=== PATIENT | female | born 1960 | race Caucasian/White ===

== ENCOUNTER 2017-12-11 19:11 | Emergency (ER) | payer MEDICARE, MEDICAID, SELFPAY ==
[2017-12-11 19:13] VITALS: BP 148/98; PULSE 99; RESP 16; TEMP 37; O2SAT 100; BMI 48.8
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
--- NOTE | 2017-12-11 20:00 | ED.RN ---
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 ADVISED TO CALL [facility] IN AM.
== END 2017-12-11 20:00 | disposition left against medical advice (07) ==
LOC: ED 20:08
PROVIDERS: Emergency Provider Emergency Medicine; PCP Family Medicine
DX: F10.129 Alcohol abuse with intoxication, unspecified (principal)

== ENCOUNTER 2017-12-29 15:23 | Inpatient (IN) | payer MEDICARE, MEDICAID, SELFPAY ==
[2017-12-29] VITALS (7 sets, daily range): BP systolic 116–191; BP diastolic 72–114; PULSE 75–89; RESP 14–16; TEMP 36.4–36.8; O2SAT 95–98; BMI 22.3
--- NOTE | 2017-12-29 16:39 | ED.VISSUMM ---
- ER Visit Summary Date of Service: 12/29/17 Chief Complaint: Alcohol detox History of Present Illness: The patient is a 57 F presenting for evaluation due to requesting alcohol detox. Patient states that she is a daily drinker of at least 12 beers a day. She states she has been doing this consistently over the course of the last couple of months. Patient states she is seeking alcohol detox. She denies any other coingestants or other drug use. Last ingestion was about an hour ago where she states she drank about 5 beers. Patient states that she called [facility] and they did inform her that she could come on Sunday to be admitted. Patient denies any significant auditory or visual hallucinations. She does endorse some anxiety associated with this. She also endorses some tremors, and occasional nausea. She denies any tactile disturbances associated with this. She does have a history of withdrawal in the past. Patient has been through detox to other times most recently approximately a year ago at a different facility. Physical Examination: Vital signs are within normal limits except for blood pressure of 191/114, patient is afebrile. General: Patient is well-nourished well-developed and in no acute distress. Head: Normocephalic, atraumatic Eyes: Pupils equal round and reactive bilaterally, extra occular motion intact bialterally ENT: Moist mucous membranes Neck: Supple, no lymphadenopathy, no JVD, no meningismus CVS: Heart regular rate and rhythm, no murmurs, rubs or gallops, radial pulses 2+ bilaterally Resp: Respirations nondistressed, lung sounds clear bilaterally Abdomen: Soft, nontender, nondistended, no palpable masses, normal bowel sounds Back: Nontender Extremities: Nontender, atraumatic, active full range of motion, no peripheral edema, mild sweaty palms Skin: warm, no rashes, no petechia Neuro: Alert and oriented x 4, CN 2-12 intact, no lateralizing neurological defecits, intoxicate, fine tremor of the hands Psyc: Normal affect Test Results: CBC unremarkable, chemistry shows hyponatremia 123, liver panel unremarkable, ethanol 180, toxicology positive for benzos and opiates Emergency Department Course and Treatment: Patient presented for evaluation requesting alcohol detox. Patient's workup does show hyponatremia. Patient was placed on supplemental normal saline. Patient's CIWA score at 2030 was found to be 18 which means that she meets criteria. Patient will be admitted to the hospitalist. Disposition: Admission Impression: 1. Alcohol dependence with intoxication and withdrawal 2. Hyponatremia This note was generated with [employer] dictation software. It may contain incorrect words, spelling, and punctuation that were not noted in review of the chart prior to signing ED Disposition - Plan for ED Patient: Chief Complaint: ETOH Intox Referrals: Makayla Perez [Primary Care Provider] -
--- NOTE | 2017-12-29 16:42 | ED.DCSUM_ITS ---
- ER Visit Summary Date of Service: 12/29/17 Chief Complaint: Alcohol detox History of Present Illness: The patient is a 57 F presenting for evaluation due to requesting alcohol detox. Patient states that she is a daily drinker of at least 12 beers a day. She states she has been doing this consistently over the course of the last couple of months. Patient states she is seeking alcohol detox. She denies any other coingestants or other drug use. Last ingestion was about an hour ago where she states she drank about 5 beers. Patient states that she called [facility] and they did inform her that she could come on Sunday to be admitted. Patient denies any significant auditory or visual hallucinations. She does endorse some anxiety associated with this. She also endorses some tremors, and occasional nausea. She denies any tactile disturbances associated with this. She does have a history of withdrawal in the past. Patient has been through detox to other times most recently approximately a year ago at a different facility. Physical Examination: Vital signs are within normal limits except for blood pressure of 191/114, patient is afebrile. General: Patient is well-nourished well-developed and in no acute distress. Head: Normocephalic, atraumatic Eyes: Pupils equal round and reactive bilaterally, extra occular motion intact bialterally ENT: Moist mucous membranes Neck: Supple, no lymphadenopathy, no JVD, no meningismus CVS: Heart regular rate and rhythm, no murmurs, rubs or gallops, radial pulses 2 + bilaterally Resp: Respirations nondistressed, lung sounds clear bilaterally Abdomen: Soft, nontender, nondistended, no palpable masses, normal bowel sounds Back: Nontender Extremities: Nontender, atraumatic, active full range of motion, no peripheral edema, mild sweaty palms Skin: warm, no rashes, no petechia Neuro: Alert and oriented x 4, CN 2-12 intact, no lateralizing neurological defecits, intoxicate, fine tremor of the hands Psyc: Normal affect Test Results: CBC unremarkable, chemistry shows hyponatremia 123, liver panel unremarkable, ethanol 180, toxicology positive for benzos and opiates Emergency Department Course and Treatment: Patient presented for evaluation requesting alcohol detox. Patient's workup does show hyponatremia. Patient was placed on supplemental normal saline. Patient's CIWA score at 2030 was found to be 18 which means that she meets criteria. Patient will be admitted to the hospitalist. Disposition: Admission Impression: 1. Alcohol dependence with intoxication and withdrawal 2. Hyponatremia This note was generated with [employer] dictation software. It may contain incorrect words, spelling, and punctuation that were not noted in review of the chart prior to signing ED Disposition - Plan for ED Patient: Chief Complaint: ETOH Intox Referrals: Makayla Perez [Primary Care Provider] -
[2017-12-29 16:54] LABS: ALB/GLOB Ratio 1.1 RATIO (0.9-2.4); AST(SGOT) 29 U/L (15-37); Alanine Aminotransfer ALT/SGPT 30 U/L (13-56); Alkaline Phosphatase 77 U/L (45-117); Anion Gap 9 (5-15); BUN 8 mg/dL (7-18); BUN/Creat Ratio 22.5 RATIO (10-20); Calcium,Total 8.5 mg/dL (8.5-10.1); Chloride 87 mmol/L (98-107); Creatinine, Serum 0.36 mg/dL (0.55-1.02); EST Glomerular Filtration Rate 201 mL/min (>60); Est Glom Filt Rate - Afr Amer 243 mL/min (>60); Estimated Creatinine Clearance 144.34 ml/min; Globulin 3.5 g/dL (2.2-4.2); Glucose 80 mg/dL (74-106); Potassium 3.3 mmol/L (3.5-5.1); Protein, Total 7.5 g/dL (6.4-8.2); Sodium Level 123 mmol/L (136-145)
[2017-12-29 17:11] LABS: Vista UDS pH Range 7
[2017-12-29 17:12] LABS: Amphetamine Urine VISTA NEGATIVE (<1000 ng/mL); Barbiturate Urine VISTA NEGATIVE (< 200 ng/mL); Benzodiazepine Urine VISTA POSITIVE (< 200 ng/mL); Cocaine Urine VISTA NEGATIVE (< 300 ng/mL); Ecstacy Urine VISTA NEGATIVE (< 500 ng/mL); Methadone Urine VISTA NEGATIVE (< 300 ng/mL); PCP Urine VISTA NEGATIVE (< 25 ng/mL); THC Urine VISTA NEGATIVE (< 50 ng/mL)
[2017-12-29 17:28] LABS: Absolute Lymphocyte Count 3.04 X10^3/ul (0.83-4.51); Absolute Neutrophil Count 3.4 X10^3/uL (2.0-7.7); Basophil# 0.03 X10^3/uL; Basophil% 0.4 % (0-1); Eosinophil# 0.15 X10^3/uL; Eosinophils% 2.1 % (0-5); Hematocrit 35.1 % (37-47); Hemoglobin 12.7 g/dl (12.0-15.0); Lymphocyte # 3.04 X10^3/ul (4.0); Lymphocyte % 41.6 % (19-41); Mean Corp Hgb Conc 36.2 g/gl (32-36); Mean Corpuscular Volume 94.1 fL (81-99); Monocyte# 0.68 X10^3/uL; Monocyte% 9.3 % (0-10); Neutrophil % 46.5 % (47-70); Platelet Count 291 K/mm3 (150-450); RBC Distribution Width CV 12.4 % (11.6-14.6); RBC Distribution Width SD 41.6 fl (35.1-43.9); Red Blood Count 3.73 M/mm3 (4.2-5.4); White Blood Count 7.3 K/mm3 (4.4-11.0)
[2017-12-29 17:29] LABS: POSITIVE COUNT NO; POSITIVE DIFFERENTIAL NO; POSITIVE MORPHOLOGY NO
[2017-12-29] MEDS: 0.9% Normal Saline 1,000 ML 150 ML IV ×2 (21:04→23:23)
[2017-12-29] MEDS: Ondansetron 4 MG/2 ML Vial IV (21:06)
--- NOTE | 2017-12-29 22:03 | HP.PCM_ITS ---
Problem List (1) ETOH abuse Status: Acute (2) Alcohol withdrawal Status: Acute (3) Hyponatremia Status: Acute (4) Hypokalemia Status: Acute History of Present Illness Date of Admission: 12/29/17 Chief Complaint: EtOH withdrawal The patient is a 57 year old female w/ h/o HTN, depression and EtOH abuse admitted for EtOH intoxication and withdrawal. Her last drink was 3PM today. She went to the ED saying that she wants to be detox. She drinks day and night. She would consistently drink at least 12 beers / day for the past few weeks. She has been previously treated for EtOH detox but she relapsed. She has nausea today when not drinking. Nothing made it better or worse. Her nausea started several hours after not drinking. She has tremors. She has not other complaint. Past Medical History Allergies acetaminophen [From Tylenol-Codeine #3] Adverse Reaction (Verified 12/11/17 19: 16) Hives codeine [From Tylenol-Codeine #3] Adverse Reaction (Verified 12/11/17 19:16) Hives latex Adverse Reaction (Verified 12/11/17 19:16) Swelling Home Medications: Ambulatory Orders Medication Instructions Recorded Diazepam [Valium] 5 mg PO TID 12/29/17 Dicyclomine HCl 20 mg PO Q6H PRN 12/29/17 Duloxetine HCl 60 mg PO DAILY 12/29/17 Hydrochlorothiazide 25 mg PO DAILY 12/29/17 Lisinopril [Zestril] 40 mg PO DAILY 12/29/17 Metoprolol Tartrate [Lopressor 100 mg PO BID 12/29/17 (Beta Nadira)] Omeprazole 40 mg PO DAILY 12/29/17 Pregabalin [Lyrica] 200 mg PO BID 12/29/17 Sertraline HCl [Zoloft] 100 mg PO DAILY 12/29/17 Smoking Status: Current every day smoker Tobacco Use: Non-smoker Alcohol: Heavy Drugs: None Review of Systems Constitutional: Denies: Chills, Fever, Weight Change HEENT: Denies: Head Aches, Sinus Congestion, Sinus Drainage Cardiovascular: Denies: Chest Pain, Palpitations Respiratory: Denies: Cough, Shortness of breath at rest, Sputum production Gastrointestinal: Denies: Abdominal Pain, Nausea, Vomiting Genitourinary: Denies: Dysuria Musculoskeletal: Denies: Joint Pain, Joint Tenderness Skin: Denies: Rash, Wounds Neurological: Denies: Numbness, Tingling, Focal weakness Psychiatric: Denies: Anxiety, Depression, Homicidal Ideations, Suicidal Ideations Hematologic/ Lymphatic: Denies: Easy Bruising, Easy Bleeding VTE Information - Inpt Only VTE Present on Admission: No VTE Mechan Device Prophylaxis: SCD's VTE Pharm Prophylaxis ordered?: Yes Patient Problems: Active and Suspected Problems ETOH abuse (Acute) Alcohol withdrawal (Acute) Hyponatremia (Acute) Hypokalemia (Acute) - Physical Exam General: Alert, Oriented x3, Cooperative HEENT: Atraumatic, PERRLA, EOMI, Normocephalic Neck: Supple, No JVD, Negative Carotid Bruits Lungs: Clear to auscultation, Normal air movement Cardiovascular: Regular rate, No murmurs Abdomen: Bowel Sounds Present, Soft, Non Tender Extremities: No edema, Capillary Refill Less than 3 Seconds Skin: No rashes, No breakdown Musculoskeletal: No Tenderness to Palpation of Joints or Extremities Neurological: Cranial nerves II-XII grossly intact Psych/Mental Status: Normal Affect, Appropriate Vital Signs Temp Pulse Resp BP Pulse Ox 97.6 F L 89 16 116/94 H 96 12/29/17 21:15 12/29/17 21:17 12/29/17 21:17 12/29/17 21:17 12/29/17 21:17 Oxygen Delivery Method Room Air Weight: 57.2 kg Body Mass Index (BMI) 22.3 Laboratory Tests Past 24 Hrs 12/29/17 12/29/17 12/29/17 16:15 16:20 16:20 WBC RBC Hgb Hct MCV MCH MCHC RDW RDW Differential Plt Count MPV Immature Gran % (Auto) Neut % (Auto) Lymph % (Auto) [place] % (Auto) Eos % (Auto) Baso % (Auto) Absolute Neuts (auto) Absolute Lymphs (auto) Total Counted Sodium 123 L Potassium 3.3 L Chloride 87 L Carbon Dioxide 27.0 Anion Gap 9 BUN 8 Creatinine 0.36 L Estim Creat Clear Calc 144.34 Est GFR (MDRD) Af Amer 243 Est GFR (MDRD) Non-Af 201 BUN/Creatinine Ratio 22.5 H Glucose 80 Calcium 8.5 Total Bilirubin 0.30 AST 29 ALT 30 Alkaline Phosphatase 77 Total Protein 7.5 Albumin 4.0 Globulin 3.5 Albumin/Globulin Ratio 1.1 Urine Opiates Screen POSITIVE H Urine Methadone Screen NEGATIVE Ur Barbiturates Screen NEGATIVE Ur Phencyclidine Scrn NEGATIVE Ur Amphetamines Screen NEGATIVE U Methamphetamin-MDMA NEGATIVE U Benzodiazepines Scrn POSITIVE H Urine Cocaine Screen NEGATIVE U Cannabinoids Screen NEGATIVE Ur Drug Screen Comment Ethyl Alcohol 188.0 12/29/17 17:22 WBC 7.3 RBC 3.73 L Hgb 12.7 Hct 35.1 L MCV 94.1 MCH 34.0 H MCHC 36.2 H RDW 12.4 RDW Differential 41.6 Plt Count 291 MPV 8.0 Immature Gran % (Auto) 0.100 Neut % (Auto) 46.5 L Lymph % (Auto) 41.6 H [place] % (Auto) 9.3 Eos % (Auto) 2.1 Baso % (Auto) 0.4 Absolute Neuts (auto) 3.4 Absolute Lymphs (auto) 3.04 Total Counted Not Reportable Sodium Potassium Chloride Carbon Dioxide Anion Gap BUN Creatinine Estim Creat Clear Calc Est GFR (MDRD) Af Amer Est GFR (MDRD) Non-Af BUN/Creatinine Ratio Glucose Calcium Total Bilirubin AST ALT Alkaline Phosphatase Total Protein Albumin Globulin Albumin/Globulin Ratio Urine Opiates Screen Urine Methadone Screen Ur Barbiturates Screen Ur Phencyclidine Scrn Ur Amphetamines Screen U Methamphetamin-MDMA U Benzodiazepines Scrn Urine Cocaine Screen U Cannabinoids Screen Ur Drug Screen Comment Ethyl Alcohol Assessment/Plan Active and Suspected Problems ETOH abuse (Acute) Alcohol withdrawal (Acute) Hyponatremia (Acute) Hypokalemia (Acute) a 57 year old female w/ h/o HTN, depression and EtOH abuse admitted for EtOH intoxication and withdrawal. 1) EtOH intoxication and withdrawal: C/w CIWA. C/w vitamins. C/w hydration. Consulted [facility]. 2) Hyponatremia: Probably secondary to EtOH. Hydration. Serial labs. Will consider workup, ie urine osmo, serum osmol, urine Na, TSH, and cortisol if not improving. 3) Hypokalemia: Secondary to poor intake. Replaced potassium. Lab in AM. 4) Prophylaxis: SCD / heparin.
[2017-12-29] MEDS: Metoprolol Tartrate 100 MG Tablet PO (23:25)
[2017-12-29] MEDS: Pregabalin 50 MG Capsule 200 MG PO (23:32)
[2017-12-29] MEDS: cloNIDine HCl 0.1 MG Tablet PO (23:32)
[2017-12-29] MEDS: LORazepam 1 MG Tablet 2 MG PO (23:32)
[2017-12-30] VITALS (13 sets, daily range): BP systolic 122–164; BP diastolic 73–108; PULSE 64–92; RESP 16–18; TEMP 36.4–37.2; O2SAT 95–98
[2017-12-30] MEDS: LORazepam 1 MG Tablet 2 MG PO ×4 (05:29→22:26)
[2017-12-30] MEDS: cloNIDine HCl 0.1 MG Tablet PO ×5 (05:30→21:05)
[2017-12-30] MEDS: 0.9% Normal Saline 1,000 ML 150 ML IV (05:48)
[2017-12-30 06:38] LABS: Absolute Lymphocyte Count 2.35 X10^3/ul (0.83-4.51); Absolute Neutrophil Count 1.7 X10^3/uL (2.0-7.7); Basophil# 0.02 X10^3/uL; Basophil% 0.4 % (0-1); Eosinophil# 0.14 X10^3/uL; Hematocrit 35.1 % (37-47); Hemoglobin 11.9 g/dl (12.0-15.0); Lymphocyte # 2.35 X10^3/ul (4.0); Lymphocyte % 49.7 % (19-41); Mean Corp Hgb Conc 33.9 g/gl (32-36); Mean Corpuscular Hgb 33.1 pg (27.0-32.0); Mean Corpuscular Volume 97.5 fL (81-99); Mean Platelet Vol. 8.7 fl (6.2-12.0); Monocyte# 0.53 X10^3/uL; Monocyte% 11.2 % (0-10); Neutrophil # 1.68 X10^3/uL (2.7-7.7); Neutrophil % 35.5 % (47-70); Platelet Count 285 K/mm3 (150-450); RBC Distribution Width CV 13.2 % (11.6-14.6); RBC Distribution Width SD 47.4 fl (35.1-43.9); White Blood Count 4.7 K/mm3 (4.4-11.0)
[2017-12-30 06:48] LABS: POSITIVE COUNT NO; POSITIVE DIFFERENTIAL NO; POSITIVE MORPHOLOGY NO
[2017-12-30 07:08] LABS: ALB/GLOB Ratio 1.1 RATIO (0.9-2.4); AST(SGOT) 28 U/L (15-37); Alanine Aminotransfer ALT/SGPT 27 U/L (13-56); Albumin, Serum 3.1 g/dL (3.2-5.0); Alkaline Phosphatase 55 U/L (45-117); Anion Gap 8 (5-15); BUN 7 mg/dL (7-18); BUN/Creat Ratio 22.3 RATIO (10-20); Calcium,Total 8.2 mg/dL (8.5-10.1); Chloride 102 mmol/L (98-107); Creatinine, Serum 0.31 mg/dL (0.55-1.02); EST Glomerular Filtration Rate 231 mL/min (>60); Est Glom Filt Rate - Afr Amer 280 mL/min (>60); Estimated Creatinine Clearance 167.62 ml/min; Globulin 2.8 g/dL (2.2-4.2); Glucose 87 mg/dL (74-106); Magnesium 1.9 mg/dL (1.6-2.6); Potassium 4.2 mmol/L (3.5-5.1); Protein, Total 5.9 g/dL (6.4-8.2); Sodium Level 133 mmol/L (136-145)
--- NOTE | 2017-12-30 07:51 | PCM.PROGNOTE ---
Patient Problems: Active and Suspected Problems ETOH abuse (Acute) Alcohol withdrawal (Acute) Hyponatremia (Acute) Hypokalemia (Acute) Subjective: Chief complaint: Follow-up after admission for EtOH intoxication/withdrawal admitted for medical stabilization, found to have hyponatremia and hypokalemia. Patient seen and examined. No acute events overnight. She reported that her nausea is improving, she is this anxious and tremors. Denied abdominal pain, constipation or diarrhea. No chest pain or shortness of breath. Her vital signs are stable. - Physical Exam General: Alert, Oriented x3, Cooperative, No apparent distress HEENT: Atraumatic, PERRLA, EOMI Oral: Moist Mucosa, No Gingival or Mucosal Lesions/ Ulcerations Neck: Supple, No JVD, Negative Carotid Bruits, Trachea Midline, Thyroid Normal Size and Texture Lungs: Clear to auscultation, No rhonchi, No wheeze, No rales, Diminished Cardiovascular: Regular rate, Regular Rhythm, Normal S1, Normal S2, No murmurs Abdomen: Bowel Sounds Present, Soft, Non Tender, Non-Distended, No Hepato-splenomegaly Extremities: No clubbing, No cyanosis, No edema Skin: No rashes, No breakdown Lymphatic: No Cervical, Supraclavicular, or Inguinal Adenopathy Neurological: Cranial nerves II-XII grossly intact, Neuro grossly intact Psych/Mental Status: Normal Affect, Appropriate, Alert and oriented to time, place, person, mood and affect Vital Signs Temp Pulse Resp BP Pulse Ox 98.3 F 81 16 123/80 H 95 12/30/17 05:27 12/30/17 05:27 12/30/17 05:27 12/30/17 05:27 12/30/17 05:24 Oxygen Delivery Method Room Air Weight: 126 lb 1.671 oz Body Mass Index (BMI) 22.3 Intake and Output for Last 24 Hours 12/28/17 12/29/17 12/30/17 23:59 23:59 23:59 Intake Total 1730 / 1730 Balance 1730 / 1730 Laboratory Tests Past 24 Hrs 12/30/17 12/30/17 05:53 05:55 WBC 4.7 RBC 3.60 L Hgb 11.9 L Hct 35.1 L MCV 97.5 MCH 33.1 H MCHC 33.9 RDW 13.2 RDW Differential 47.4 H Plt Count 285 MPV 8.7 Immature Gran % (Auto) 0.200 Neut % (Auto) 35.5 L Lymph % (Auto) 49.7 H [place] % (Auto) 11.2 H Eos % (Auto) 3.0 Baso % (Auto) 0.4 Absolute Neuts (auto) 1.7 L Absolute Lymphs (auto) 2.35 Total Counted Not Reportable Sodium 133 L Potassium 4.2 Chloride 102 Carbon Dioxide 23.0 Anion Gap 8 BUN 7 Creatinine 0.31 L Estim Creat Clear Calc 167.62 Est GFR (MDRD) Af Amer 280 Est GFR (MDRD) Non-Af 231 BUN/Creatinine Ratio 22.3 H Glucose 87 Calcium 8.2 L Magnesium 1.9 Total Bilirubin 0.50 AST 28 ALT 27 Alkaline Phosphatase 55 Total Protein 5.9 L Albumin 3.1 L Globulin 2.8 Albumin/Globulin Ratio 1.1 Medical Necessity - Tobacco Use Smoking Status: Current every day smoker Tobacco Use: Cigarettes Assessment/Plan Active and Suspected Problems ETOH abuse (Acute) Alcohol withdrawal (Acute) Hyponatremia (Acute) Hypokalemia (Acute) This is a 57 years old female patient presented to the emergency room asking for admission for alcohol detoxification and she was admitted for medical stabilization, found to have hypokalemia and hyponatremia #1 acute alcohol intoxication/withdrawal: Patient admitted drinking alcohol but denied drug abuse. Her blood alcohol level was 188. Urine drug screen was positive for opioids and benzodiazepines. She has been on Valium for anxiety at home. She is on [facility] protocol with IV Ativan as needed, CIWA protocol, Catapres, as needed fentanyl, Vistaril,, folic acid and thiamine supplement. Her vital signs are stable. Her LFT was unremarkable. Plan to continue same treatment. #2 hyponatremia/hypokalemia: This is likely because of alcohol abuse in addition to HCTZ. Her potassium replaced and corrected, today's potassium is 4.2. Sodium improved to 123 up to 133. Plan to decrease IV fluids down to 100 cc and to stop after 1 L of fluid. #3 hypertension: Blood pressure stable, continue lisinopril and metoprolol. #4 fibromyalgia: Continue Lyrica. #5 anxiety/PTSD: Continue Cymbalta and Zoloft and she is on Ativan as needed. #6 DVT prophylaxis: Subcu heparin. This note was generated with [employer] software. It may contain incorrect words, spelling, and punctuation that were not noted in checking the note before signing. Code Visit Inpatient E&M: 74967 Subs Hosp L2
--- NOTE | 2017-12-30 07:57 | PN_ITS ---
Patient Problems: Active and Suspected Problems ETOH abuse (Acute) Alcohol withdrawal (Acute) Hyponatremia (Acute) Hypokalemia (Acute) Subjective: Chief complaint: Follow-up after admission for EtOH intoxication/withdrawal admitted for medical stabilization, found to have hyponatremia and hypokalemia. Patient seen and examined. No acute events overnight. She reported that her nausea is improving, she is this anxious and tremors. Denied abdominal pain, constipation or diarrhea. No chest pain or shortness of breath. Her vital signs are stable. - Physical Exam General: Alert, Oriented x3, Cooperative, No apparent distress HEENT: Atraumatic, PERRLA, EOMI Oral: Moist Mucosa, No Gingival or Mucosal Lesions/ Ulcerations Neck: Supple, No JVD, Negative Carotid Bruits, Trachea Midline, Thyroid Normal Size and Texture Lungs: Clear to auscultation, No rhonchi, No wheeze, No rales, Diminished Cardiovascular: Regular rate, Regular Rhythm, Normal S1, Normal S2, No murmurs Abdomen: Bowel Sounds Present, Soft, Non Tender, Non-Distended, No Hepato- splenomegaly Extremities: No clubbing, No cyanosis, No edema Skin: No rashes, No breakdown Lymphatic: No Cervical, Supraclavicular, or Inguinal Adenopathy Neurological: Cranial nerves II-XII grossly intact, Neuro grossly intact Psych/Mental Status: Normal Affect, Appropriate, Alert and oriented to time, place, person, mood and affect Vital Signs Temp Pulse Resp BP Pulse Ox 98.3 F 81 16 123/80 H 95 12/30/17 05:27 12/30/17 05:27 12/30/17 05:27 12/30/17 05:27 12/30/17 05:24 Oxygen Delivery Method Room Air Weight: 126 lb 1.671 oz Body Mass Index (BMI) 22.3 Intake and Output for Last 24 Hours 12/28/17 12/29/17 12/30/17 23:59 23:59 23:59 Intake Total 1730 / 1730 Balance 1730 / 1730 Laboratory Tests Past 24 Hrs 12/30/17 12/30/17 05:53 05:55 WBC 4.7 RBC 3.60 L Hgb 11.9 L Hct 35.1 L MCV 97.5 MCH 33.1 H MCHC 33.9 RDW 13.2 RDW Differential 47.4 H Plt Count 285 MPV 8.7 Immature Gran % (Auto) 0.200 Neut % (Auto) 35.5 L Lymph % (Auto) 49.7 H [place] % (Auto) 11.2 H Eos % (Auto) 3.0 Baso % (Auto) 0.4 Absolute Neuts (auto) 1.7 L Absolute Lymphs (auto) 2.35 Total Counted Not Reportable Sodium 133 L Potassium 4.2 Chloride 102 Carbon Dioxide 23.0 Anion Gap 8 BUN 7 Creatinine 0.31 L Estim Creat Clear Calc 167.62 Est GFR (MDRD) Af Amer 280 Est GFR (MDRD) Non-Af 231 BUN/Creatinine Ratio 22.3 H Glucose 87 Calcium 8.2 L Magnesium 1.9 Total Bilirubin 0.50 AST 28 ALT 27 Alkaline Phosphatase 55 Total Protein 5.9 L Albumin 3.1 L Globulin 2.8 Albumin/Globulin Ratio 1.1 Medical Necessity - Tobacco Use Smoking Status: Current every day smoker Tobacco Use: Cigarettes Assessment/Plan Active and Suspected Problems ETOH abuse (Acute) Alcohol withdrawal (Acute) Hyponatremia (Acute) Hypokalemia (Acute) This is a 57 years old female patient presented to the emergency room asking for admission for alcohol detoxification and she was admitted for medical stabilization, found to have hypokalemia and hyponatremia #1 acute alcohol intoxication/withdrawal: Patient admitted drinking alcohol but denied drug abuse. Her blood alcohol level was 188. Urine drug screen was positive for opioids and benzodiazepines. She has been on Valium for anxiety at home. She is on [facility] protocol with IV Ativan as needed, CIWA protocol , Catapres, as needed fentanyl, Vistaril,, folic acid and thiamine supplement. Her vital signs are stable. Her LFT was unremarkable. Plan to continue same treatment. #2 hyponatremia/hypokalemia: This is likely because of alcohol abuse in addition to HCTZ. Her potassium replaced and corrected, today's potassium is 4.2. Sodium improved to 123 up to 133. Plan to decrease IV fluids down to 100 cc and to stop after 1 L of fluid. #3 hypertension: Blood pressure stable, continue lisinopril and metoprolol. #4 fibromyalgia: Continue Lyrica. #5 anxiety/PTSD: Continue Cymbalta and Zoloft and she is on Ativan as needed. #6 DVT prophylaxis: Subcu heparin. This note was generated with [employer] software. It may contain incorrect words, spelling, and punctuation that were not noted in checking the note before signing. Code Visit Inpatient E&M: 56845 Subs Hosp L2
[2017-12-30] MEDS: Sertraline 100 MG Tablet PO (09:20)
[2017-12-30] MEDS: Pantoprazole Sodium 40 MG Tablet PO (09:20)
[2017-12-30] MEDS: Lisinopril 40 MG Tablet PO (09:20)
[2017-12-30] MEDS: Metoprolol Tartrate 100 MG Tablet PO ×2 (09:20→21:02)
[2017-12-30] MEDS: Thiamine Hydrochloride 100 MG Tablet PO ×2 (09:21→16:28)
[2017-12-30] MEDS: Folic Acid 1 MG Tablet PO (09:21)
[2017-12-30] MEDS: 0.9% Normal Saline 1,000 ML 100 ML IV (09:21)
[2017-12-30] MEDS: DULoxetine Hcl 60 MG Capsule PO (09:21)
[2017-12-30] MEDS: Multivitamins,Ther W-Minerals Tablet 1 TABLET PO (09:21)
[2017-12-30] MEDS: Pregabalin 50 MG Capsule 200 MG PO ×2 (09:24→21:04)
[2017-12-30] MEDS: LORazepam 2 MG/ML Syringe IV ×2 (14:38→16:25)
[2017-12-30] MEDS: Methocarbamol 750 MG Tablet PO (14:38)
[2017-12-30] MEDS: 0.9% NaCl Peripheral Flush Adult/Peds IV ×2 (14:40→16:26)
[2017-12-30] MEDS: QUEtiapine 25 MG Tablet PO (21:01)
[2017-12-30] MEDS: hydrOXYzine PAM 25 MG Capsule 50 MG PO (21:01)
[2017-12-31] VITALS (16 sets, daily range): BP systolic 149–181; BP diastolic 81–117; PULSE 67–83; RESP 16–18; TEMP 36.2–36.9; O2SAT 93–97
[2017-12-31] MEDS: LORazepam 1 MG Tablet 2 MG PO ×5 (02:14→23:18)
[2017-12-31] MEDS: cloNIDine HCl 0.1 MG Tablet PO ×6 (02:14→22:29)
[2017-12-31] MEDS: 0.9% NaCl Peripheral Flush Adult/Peds IV ×2 (02:19→22:33)
[2017-12-31 06:17] LABS: Anion Gap 10 (5-15); BUN 9 mg/dL (7-18); BUN/Creat Ratio 25.4 RATIO (10-20); Calcium,Total 8.5 mg/dL (8.5-10.1); Chloride 101 mmol/L (98-107); Creatinine, Serum 0.35 mg/dL (0.55-1.02); EST Glomerular Filtration Rate 202 mL/min (>60); Est Glom Filt Rate - Afr Amer 244 mL/min (>60); Estimated Creatinine Clearance 148.47 ml/min; Glucose 109 mg/dL (74-106); Potassium 4.3 mmol/L (3.5-5.1); Sodium Level 133 mmol/L (136-145)
--- NOTE | 2017-12-31 07:44 | PCM.PROGNOTE ---
Patient Problems: Active and Suspected Problems ETOH abuse (Acute) Alcohol withdrawal (Acute) Hyponatremia (Acute) Hypokalemia (Acute) Subjective: Chief complaint: Follow-up after admission for alcohol intoxication/withdrawal admitted for medical stabilization, also follow-up for hyponatremia and hypokalemia. Patient seen and examined. No acute events overnight. She just woke up from sleep. Reported continued slow improvement in her symptoms. Nausea improved. Tremors and anxiety also improved. Her blood pressure has been elevated, other vital signs are stable. - Physical Exam General: Alert, Oriented x3 HEENT: Atraumatic, PERRLA, EOMI Oral: Moist Mucosa, No Gingival or Mucosal Lesions/ Ulcerations Neck: Supple, No JVD, Negative Carotid Bruits, Thyroid Normal Size and Texture Lungs: Clear to auscultation, Normal air movement, No rhonchi, No wheeze, No rales Cardiovascular: Regular rate, Regular Rhythm, Normal S1, Normal S2, No murmurs, PMI Normal Abdomen: Bowel Sounds Present, Soft, Non Tender, Non-Distended, No Hepato-splenomegaly Extremities: No clubbing, No cyanosis, No edema Skin: No rashes, No breakdown Lymphatic: No Cervical, Supraclavicular, or Inguinal Adenopathy Neurological: Cranial nerves II-XII grossly intact, Neuro grossly intact Psych/Mental Status: Normal Affect, Appropriate, Alert and oriented to time, place, person, mood and affect Vital Signs Temp Pulse Resp BP Pulse Ox 98.0 F 68 16 158/81 H 95 12/31/17 07:42 12/31/17 07:42 12/31/17 07:42 12/31/17 07:42 12/31/17 07:42 Oxygen Delivery Method Room Air Weight: 126 lb 1.671 oz Body Mass Index (BMI) 22.3 Intake and Output for Last 24 Hours 12/29/17 12/30/17 12/31/17 23:59 23:59 23:59 Intake Total 7463 / 7463 450 / 450 Balance 7463 / 7463 450 / 450 Laboratory Tests Past 24 Hrs 12/31/17 05:36 Sodium 133 L Potassium 4.3 Chloride 101 Carbon Dioxide 22.0 Anion Gap 10 BUN 9 Creatinine 0.35 L Estim Creat Clear Calc 148.47 Est GFR (MDRD) Af Amer 244 Est GFR (MDRD) Non-Af 202 BUN/Creatinine Ratio 25.4 H Glucose 109 H Calcium 8.5 Medical Necessity - Tobacco Use Smoking Status: Current every day smoker Tobacco Use: Cigarettes Assessment/Plan Active and Suspected Problems ETOH abuse (Acute) Alcohol withdrawal (Acute) Hyponatremia (Acute) Hypokalemia (Acute) This is a 57 years old female patient presented to the emergency room asking for admission for alcohol detoxification and she was admitted for medical stabilization, found to have hypokalemia and hyponatremia #1 acute alcohol intoxication/withdrawal: Remained on [facility] protocol with IV Ativan as needed, CIWA protocol, Catapres, as needed fentanyl, Vistaril,, folic acid and thiamine supplement.Patient admitted drinking alcohol but denied drug abuse. Her blood alcohol level was 188. Urine drug screen was positive for opioids and benzodiazepines. She has been on Valium for anxiety at home. Her vital signs are stable. Her LFT was unremarkable. Plan to continue same treatment. #2 hyponatremia/hypokalemia: This is likely because of alcohol abuse in addition to HCTZ. Her potassium replaced and corrected, today's potassium is 4.3. Sodium improved to 123 up to 133. #3 hypertension: Blood pressure stable, continue lisinopril and metoprolol. #4 fibromyalgia: Continue Lyrica. #5 anxiety/PTSD: Continue Cymbalta and Zoloft and she is on Ativan as needed. #6 DVT prophylaxis: Subcu heparin. This note was generated with [employer] software. It may contain incorrect words, spelling, and punctuation that were not noted in checking the note before signing. Code Visit Inpatient E&M: 62231 Subs Hosp L2
[2017-12-31] MEDS: Thiamine Hydrochloride 100 MG Tablet PO ×2 (07:57→17:06)
[2017-12-31] MEDS: Folic Acid 1 MG Tablet PO (07:58)
[2017-12-31] MEDS: Multivitamins,Ther W-Minerals Tablet 1 TABLET PO (07:58)
[2017-12-31] MEDS: DULoxetine Hcl 60 MG Capsule PO (09:46)
[2017-12-31] MEDS: Pregabalin 50 MG Capsule 200 MG PO ×2 (09:47→22:33)
[2017-12-31] MEDS: Metoprolol Tartrate 100 MG Tablet PO ×2 (09:47→20:20)
[2017-12-31] MEDS: Pantoprazole Sodium 40 MG Tablet PO (09:48)
[2017-12-31] MEDS: Sertraline 100 MG Tablet PO (09:48)
[2017-12-31] MEDS: Lisinopril 40 MG Tablet PO (09:48)
[2017-12-31] MEDS: hydrOXYzine PAM 25 MG Capsule 50 MG PO (20:24)
[2017-12-31] MEDS: hydrALAZINE 20 MG/ML Vial 10 MG IV (22:33)
[2018-01-01 01:51] VITALS: BP 172/90; PULSE 76; RESP 20; TEMP 36.4; O2SAT 97
[2018-01-01] MEDS: cloNIDine HCl 0.1 MG Tablet PO ×3 (01:58→10:05)
[2018-01-01] MEDS: QUEtiapine 25 MG Tablet PO (02:01)
[2018-01-01 03:59] VITALS: PULSE 74
[2018-01-01 06:00] VITALS: BP 158/97; PULSE 80; RESP 18; TEMP 36.8; O2SAT 92
[2018-01-01] MEDS: LORazepam 1 MG Tablet 2 MG PO (06:56)
[2018-01-01] MEDS: Thiamine Hydrochloride 100 MG Tablet PO (08:41)
[2018-01-01] MEDS: Multivitamins,Ther W-Minerals Tablet 1 TABLET PO (08:41)
[2018-01-01] MEDS: Folic Acid 1 MG Tablet PO (08:42)
--- NOTE | 2018-01-01 08:42 | DCINST_ITS ---
- Discharge Diagnoses Current Active Problems: Current Active and Chronic Problems ETOH abuse (Acute) Alcohol withdrawal (Acute) Hyponatremia (Acute) Hypokalemia (Acute) Essential Hypertension (Chronic) Fibromyalgia. Anxiety disorder. PTSD. You will use the following diet at home:: Regular Your food should be the consistency of: Regular Discharge Activity: Return to Normal Activity Allergies/Adverse Reactions: Allergies acetaminophen [From Tylenol-Codeine #3] Adverse Reaction (Verified 12/11/17 19: 16) Hives codeine [From Tylenol-Codeine #3] Adverse Reaction (Verified 12/11/17 19:16) Hives latex Adverse Reaction (Verified 12/11/17 19:16) Swelling Medications to take at Discharge Diazepam [Valium] 5 mg PO TID 12/29/17 Dicyclomine HCl 20 mg PO Q6H PRN 12/29/17 Duloxetine HCl 60 mg PO DAILY 12/29/17 Hydrochlorothiazide 25 mg PO DAILY 12/29/17 Lisinopril [Zestril] 40 mg PO DAILY 12/29/17 Metoprolol Tartrate [Lopressor (beta ruth)] 100 mg PO BID 12/29/17 Omeprazole 40 mg PO DAILY 12/29/17 Pregabalin [Lyrica] 200 mg PO BID 12/29/17 Sertraline HCl [Zoloft] 100 mg PO DAILY 12/29/17 Multivitamins,Ther W-Minerals [Multivitamin With Minerals] 1 tab PO DAILYCM #30 tab 01/01/18 Thiamine Hydrochloride [Vitamin B1] 100 mg PO BID #60 tab 01/01/18 The following prescriptions were given: Multivitamins,Ther W-Minerals [Multivitamin With Minerals] 1 tab PO DAILYCM #30 tab Thiamine Hydrochloride [Vitamin B1] 100 mg PO BID #60 tab Primary Care Physician: Makayla Perez [Primary Care Provider] - Please follow up with your Primary Care Physician in: Follow up in 1 to 2 weeks. Please Follow Up With: Follow up with [facility]
--- NOTE | 2018-01-01 08:42 | PCM.DC.SUM ---
Discharge Date and Diagnosis - Problem List Patient Problems: Active and Suspected Problems ETOH abuse (Acute) Alcohol withdrawal (Acute) Hyponatremia (Acute) Hypokalemia (Acute) Date of Admission: 12/29/17 Date of Discharge: 01/01/18 - Primary Discharge Diagnosis Active and Suspected Problems ETOH abuse (Acute) Alcohol withdrawal (Acute) Hyponatremia (Acute) Hypokalemia (Acute) - Secondary Discharge Diagnosis Chronic Problems PTSD (post-traumatic stress disorder) (Chronic) Anxiety (Chronic) Fibromyalgia (Chronic) Hypertension (Chronic) Hospital Course and Treatment Imaging Results: None. CONSULTATION: [facility] Operations: None Procedures: None Summary of Care Provided: This is a 57 years old female patient presented to the emergency room asking for admission for alcohol detoxification and she was admitted for medical stabilization, found to have hypokalemia and hyponatremia. She had completed 3 overnight stay. She has been stable, vital signs are adequate. Discharge to home as planned. Follow up with [facility]. #1 acute alcohol intoxication/withdrawal: Remained on [facility] protocol with IV Ativan as needed, CIWA protocol, Catapres, as needed fentanyl, Vistaril,, folic acid and thiamine supplement.Patient admitted drinking alcohol but denied drug abuse. Her blood alcohol level was 188. Urine drug screen was positive for opioids and benzodiazepines. She has been on Valium for anxiety at home. Her vital signs are stable. Her LFT was unremarkable. Completed 3 overnight stay, she remained stable. Plan to discharge to home, follow up with [facility]. #2 hyponatremia/hypokalemia: This is likely because of alcohol abuse in addition to HCTZ. Her potassium replaced and corrected, today's potassium is 4.3. Sodium improved to 123 up to 133. #3 hypertension: Blood pressure adequate, continue lisinopril and metoprolol. #4 fibromyalgia: Continue Lyrica. #5 anxiety/PTSD: Continue Cymbalta and Zoloft and she is on Ativan as needed. #6 DVT prophylaxis: Heparin SQ given during the hospital stay. Discharge Diet: No Restrictions Discharge Activity: Return to Normal Activity Home Medications: Medications to take at Discharge Diazepam [Valium] 5 mg PO TID 12/29/17 Dicyclomine HCl 20 mg PO Q6H PRN 12/29/17 Duloxetine HCl 60 mg PO DAILY 12/29/17 Hydrochlorothiazide 25 mg PO DAILY 12/29/17 Lisinopril [Zestril] 40 mg PO DAILY 12/29/17 Metoprolol Tartrate [Lopressor (beta ruth)] 100 mg PO BID 12/29/17 Omeprazole 40 mg PO DAILY 12/29/17 Pregabalin [Lyrica] 200 mg PO BID 12/29/17 Sertraline HCl [Zoloft] 100 mg PO DAILY 12/29/17 Multivitamins,Ther W-Minerals [Multivitamin With Minerals] 1 tab PO DAILYCM #30 tab 01/01/18 Thiamine Hydrochloride [Vitamin B1] 100 mg PO BID #60 tab 01/01/18 Following Prescrptions Were Given to Patient: Multivitamins,Ther W-Minerals [Multivitamin With Minerals] 1 tab PO DAILYCM #30 tab Thiamine Hydrochloride [Vitamin B1] 100 mg PO BID #60 tab Primary Care Physician: Makayla Perez [Primary Care Provider] - Please follow up with your Primary Care Physician in: Follow up in 1 to 2 weeks. Please Follow Up With: Follow up with [facility] Disposition: Home Patient Condition:: Stable Medical Necessity - Tobacco Use Smoking Status: Current every day smoker - Nicotine patch provided during the hospital stay. Councel for cessation of smoking. Tobacco Use: Cigarettes Meaningful Use Info Meaningful Use Diagnoses (Choose all that apply): None applicable Code Visit Inpatient E&M: 16224 Disch Hosp
[2018-01-01 10:00] VITALS: BP 154/86; PULSE 80; PULSE 95; RESP 18; TEMP 37.1; TEMP 37.2; O2SAT 95
[2018-01-01 10:04] VITALS: PULSE 84
[2018-01-01] MEDS: Lisinopril 40 MG Tablet PO (10:04)
[2018-01-01] MEDS: Pantoprazole Sodium 40 MG Tablet PO (10:04)
[2018-01-01] MEDS: Metoprolol Tartrate 100 MG Tablet PO (10:04)
[2018-01-01] MEDS: Sertraline 100 MG Tablet PO (10:05)
[2018-01-01] MEDS: Pregabalin 50 MG Capsule 200 MG PO (10:07)
[2018-01-01] MEDS: Polyethylene Glycol 3350 17 GM PACKET PO (10:08)
[2018-01-01] MEDS: DULoxetine Hcl 60 MG Capsule PO (11:12)
[2018-01-01 12:33] VITALS: BP 146/80; PULSE 74; RESP 18; TEMP 36.4; O2SAT 98
== END 2018-01-01 12:46 | disposition home or self-care (01) | DRG 897 ==
LOC: ED 21:48 → MS2 21:53
PROVIDERS: Hospitalist; Admitting Provider Internal Medicine; Emergency Provider Emergency Medicine; Family Provider Family Medicine; PCP Family Medicine; Visit Provider Hospitalist
DX: F10.239 Alcohol dependence with withdrawal, unspecified (principal); F10.229 Alcohol dependence with intoxication, unspecified; E87.1 Hypo-osmolality and hyponatremia; E87.6 Hypokalemia; I10 Essential (primary) hypertension; Y90.6 Blood alcohol level of 120-199 mg/100 ml; F17.210 Nicotine dependence, cigarettes, uncomplicated; M79.7 Fibromyalgia; F43.10 Post-traumatic stress disorder, unspecified; F41.9 Anxiety disorder, unspecified
CPT/HCPCS: 36415; 80048; 80053; 80307; 80320; 83735; 85025; 97802; 99284; 99406; J7030; J7040; A4216; G0480; J2405

== ENCOUNTER → 2018-12-04 09:53 | Outpatient (CLI) | payer MEDICARE, MEDICAID, SELFPAY ==
[2018-12-04 10:55] LABS: Amphetamine Urine VISTA NEGATIVE (<1000 ng/mL); Barbiturate Urine VISTA NEGATIVE (< 200 ng/mL); Benzodiazepine Urine VISTA NEGATIVE (< 200 ng/mL); Cocaine Urine VISTA NEGATIVE (< 300 ng/mL); Ecstacy Urine VISTA NEGATIVE (< 500 ng/mL); Methadone Urine VISTA NEGATIVE (< 300 ng/mL); PCP Urine VISTA NEGATIVE (< 25 ng/mL); THC Urine VISTA NEGATIVE (< 50 ng/mL); Vista UDS pH Range 6
== END ==
PROVIDERS: Family Provider Family Medicine; PCP Family Medicine; Referring Provider Anesthesiology Pain Medicine; Visit Provider Anesthesiology Pain Medicine
DX: F11.20 Opioid dependence, uncomplicated (principal)
CPT/HCPCS: 80307

== ENCOUNTER → 2019-06-11 10:54 | Outpatient (CLI) | payer MEDICARE, MEDICAID, SELFPAY ==
[2017-12-29 22:26] VITALS: BMI 22.3
--- NOTE | 2019-06-11 10:58 | RAD_ITS ---
HISTORY:LOW BACK PAIN, SCIATICA LEFT SIDE LOW BACK PAIN, SCIATICA LEFT SIDE EXAMINATION/TECHNIQUE: XR Spine Lumbar 2 or 3 Views: 3 views COMPARISON: None FINDINGS: VERTEBRAE: Preserved vertebral body height. No fracture. No spondylolisthesis. Degenerative changes of the posterior elements. Straightening of the normal lumbar lordosis levoscoliosis DISCS: Degenerative changes are noted. INCLUDED ABDOMEN: Included bowel gas pattern is non-obstructive. Atherosclerotic vascular disease RAD/Lumbar Spine 2 or 3 Views IMPRESSION: Degenerative changes. No acute fracture or spondylolisthesis. at 2221 Reported and signed by: Dora Nieto DO Electronically Signed: Dora Nieto DO at 22:20 EDT Tel , Service support ,
== END ==
PROVIDERS: Family Provider Family Medicine; PCP Family Medicine; Referring Provider Anesthesiology Pain Medicine; Visit Provider Anesthesiology Pain Medicine
DX: M54.9 Dorsalgia, unspecified (principal)
CPT/HCPCS: 72100

== ENCOUNTER → 2020-08-16 09:55 | Outpatient (CLI) | payer MEDICARE, MEDICAID, SELFPAY ==
[2017-12-29 22:26] VITALS: BMI 22.3
[2020-08-16 10:47] LABS: Amphetamine Urine VISTA NEGATIVE (<1000 ng/mL); Barbiturate Urine VISTA NEGATIVE (< 200 ng/mL); Benzodiazepine Urine VISTA NEGATIVE (< 200 ng/mL); Cocaine Urine VISTA NEGATIVE (< 300 ng/mL); Ecstacy Urine VISTA POSITIVE (< 500 ng/mL); Methadone Urine VISTA NEGATIVE (< 300 ng/mL); PCP Urine VISTA NEGATIVE (< 25 ng/mL); THC Urine VISTA NEGATIVE (< 50 ng/mL); Vista UDS pH Range 5
== END ==
PROVIDERS: PCP Family Medicine; Referring Provider Anesthesiology Pain Medicine; Visit Provider Anesthesiology Pain Medicine
DX: F11.20 Opioid dependence, uncomplicated (principal)
CPT/HCPCS: 80307

== ENCOUNTER → 2020-09-13 09:44 | Outpatient (CLI) | payer MEDICARE, MEDICAID, SELFPAY ==
[2017-12-29 22:26] VITALS: BMI 22.3
[2020-09-13 11:18] LABS: Amphetamine Urine VISTA NEGATIVE (<1000 ng/mL); Barbiturate Urine VISTA NEGATIVE (< 200 ng/mL); Benzodiazepine Urine VISTA NEGATIVE (< 200 ng/mL); Cocaine Urine VISTA NEGATIVE (< 300 ng/mL); Ecstacy Urine VISTA NEGATIVE (< 500 ng/mL); Methadone Urine VISTA NEGATIVE (< 300 ng/mL); PCP Urine VISTA NEGATIVE (< 25 ng/mL); THC Urine VISTA NEGATIVE (< 50 ng/mL); Vista UDS pH Range 6
== END ==
PROVIDERS: PCP Family Medicine; Referring Provider Anesthesiology Pain Medicine; Visit Provider Anesthesiology Pain Medicine
DX: F11.20 Opioid dependence, uncomplicated (principal)
CPT/HCPCS: 80307

== ENCOUNTER → 2021-07-29 10:31 | Outpatient (CLI) | payer MEDICARE, MEDICAID, SELFPAY ==
[2021-07-29 11:15] LABS: ALB/GLOB Ratio 0.9 RATIO (0.9-2.4); AST(SGOT) 45 U/L (15-37); Alanine Aminotransfer ALT/SGPT 25 U/L (13-56); Albumin, Serum 3.8 g/dL (3.2-5.0); Alkaline Phosphatase 109 U/L (45-117); BUN 10 mg/dL (7-18); BUN/Creat Ratio 14.7 RATIO (10-20); Calcium,Total 9.2 mg/dL (8.5-10.1); Chloride 92 mmol/L (98-107); Creatinine, Serum 0.68 mg/dL (0.55-1.02); EST Glomerular Filtration Rate 94 mL/min (>60); Est Glom Filt Rate - Afr Amer 114 mL/min (>60); Globulin 4.2 g/dL (2.2-4.2); Glucose 113 mg/dL (74-106); Phosphorus 4.6 mg/dL (2.5-4.9); Potassium 4.7 mmol/L (3.5-5.1); Sodium Level 126 mmol/L (136-145)
[2021-07-30 20:07] LABS: HCV Quant. RNA PCR HCV Not Detected IU/mL (.)
== END ==
PROVIDERS: PCP Family Medicine
DX: B18.2 Chronic viral hepatitis C (principal); E87.1 Hypo-osmolality and hyponatremia
CPT/HCPCS: 36415; 80069; 82247; 82248; 84075; 84156; 84450; 84460; 87522

== ENCOUNTER 2024-05-01 22:34 | Emergency (ER) | payer MEDICARE, MEDICAID, SELFPAY ==
[2024-05-01 22:35] VITALS: BP 155/80; PULSE 107; RESP 16; TEMP 36.2; O2SAT 98; BMI 22.2
--- NOTE | 2024-05-01 22:59 | CT_ITS ---
INDICATION: pain with ? Avulsion fracture on x-ray EXAMINATION: CT BONE - CT Lower Extremity W/O Contrast Injection TECHNIQUE: Helically acquired images were obtained of the right hip and proximal half of the right femur with sagittal and coronal reconstructed images. Individualized dose optimization techniques were used for this CT. IV contrast dosage and agent: None. COMPARISON: None. FINDINGS: The soft tissues are unremarkable. 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 No acute fracture. No dislocation. Mild degenerative changes of the right hip. 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 No acute fracture or dislocation. Electronically Signed: Rajiv Patino DO at 23:55 EDT ,
--- NOTE | 2024-05-01 23:17 | EDS_ITS ---
HPI History of Present Illness Chief Complaint: Lower Extremity Injury Informant: patient Narrative Narrative: Patient is a 64-year-old female with past medical history of hypertension fibromyalgia as well as anxiety and alcohol abuse. She states that she fell ro ughly 1 to 2 weeks ago. She states it was mechanical fall where she simply lost her balance and fell landing on her right side. She states since that time she has had pain in her right hip. The pain has been slowly progressing and she states has been no repeat trauma. She had an outpatient x-ray which questioned an avulsion fracture and secondary to the worsening pain was sent in for further evaluation. [facility] Home Medications ?Medication ?Instructions ?Recorded ?Last Taken ?Type Hydrochlorothiazide 25 mg PO DAILY 12/29/17 Unknown History diazepam 5 mg tablet (Valium) 5 mg PO TID 12/29/17 Unknown History dicyclomine 20 mg tablet 20 mg PO Q6H PRN Cramp 12/29/17 Unknown History duloxetine 60 mg capsule,delayed 60 mg PO DAILY 12/29/17 Unknown History release lisinopril 40 mg tablet (Zestril) 40 mg PO DAILY 12/29/17 Unknown History metoprolol tartrate 100 mg tablet 100 mg PO BID 12/29/17 Unknown History omeprazole 40 mg capsule,delayed 40 mg PO DAILY 12/29/17 Unknown History release pregabalin 200 mg capsule (Lyrica) 200 mg PO BID 12/29/17 Unknown History sertraline 100 mg tablet (Zoloft) 100 mg PO DAILY 12/29/17 Unknown History multivitamin,[id number] 27 1 tab PO DAILYCM #30 tabs 01/01/18 Unknown Rx mg-0.4 mg tablet thiamine HCl (vitamin B1) 100 mg 100 mg PO BID #60 tabs 01/01/18 Unknown Rx tablet oxycodone-acetaminophen 5 mg-325 1 tab PO Q6H PRN pain 3 days #12 05/02/24 Unknown Rx mg tablet (Percocet) tabs Allergy/AdvReac Type Severity Reaction Status Date / Time acetaminophen (From AdvReac Hives Verified 12/11/17 19:16 Tylenol-Codeine #3) codeine (From AdvReac Hives Verified 12/11/17 19:16 Tylenol-Codeine #3) latex AdvReac Swelling Verified 12/11/17 19:16 Social History Smoking Status: Current every day smoker tobacco type: cigarettes ROS ROS ED Constitutional Constitutional ED: Denies chills or fever(s) Eyes Eyes: Denies change in vision ENT ENT ED: Denies sore throat Cardiovascular Cardiovascular: Denies chest pain Respiratory/Chest Respiratory/Chest: Denies cough or dyspnea Gastrointestinal Gastrointestinal: Denies abdominal pain, diarrhea, nausea or vomiting Genitourinary Genitourinary ED: Denies dysuria Musculoskeletal Musculoskeletal: Reports other Details: Positive right hip pain Integumentary Denies Abrasions or rash Neurologic Neurologic: Denies headache(s) Hematologic/Lymphatic Hematologic/Lymphatic: Denies easy bleeding or easy bruising EXAM Physical Exam Const Vital Signs: 05/01/24 22:35 05/02/24 00:35 05/02/24 01:09 Temperature 97.2 F L 97.7 F L Temperature Source Tympanic Pulse Rate 107 H 93 75 Respiratory Rate 16 16 16 Blood Pressure 155/80 H 114/62 108/65 Blood Pressure Mean 105 79 79 Pulse Ox 98 93 99 Oxygen Delivery Method Room Air Room Air Positive well nourished and well developed General Appearance ED: well developed; Negative for pallor HEENT HEENT Narrative: Normocephalic atraumatic Eyes PERRL and EOMs intact bilaterally General Eye ED: Negative for scleral icterus Neck supple Resp normal respiratory effort and clear to auscultation bilaterally Cardio regular rate and regular rhythm Extremity Extremity Narrative: Pelvis is stable there is no shortening or external rotation of either lower extremity. Patient has a knee immobilizer on the left leg which she states is secondary to a fractured patella which she sustained a few weeks ago as well There is pain on palpation along the right greater trochanter. There is mild increased pain with internal rotation and flexion of the hip. There is no overlying erythema or warmth or ecchymosis. No pelvic instability Neuro oriented x3 and CN's II-XII intact bilaterally Sensorium / Orientation: alert Psych mental status grossly normal Skin no rashes or lesions noted General Skin Exam: Negative for jaundice or pallor MDM MDM MDM Narrative Medical decision making narrative: Patient arrived the ER hypertensive but has a past medical history of this. She reported her fall was 1 to 2 weeks ago and was mechanical in nature and therefore there is no need for a cardiac or syncope workup. Also based on the prolonged timeframe from the fall and initial evaluation in the ER without signs of head injury or history of blood thinner use I do not feel there is a need for head CT as concern for subarachnoid or subdural hemorrhage is low. With potential for contusion versus fracture and the patient already having an x-ray a CT scan was obtained. This did confirm an avulsion fracture off the greater trochanter of the right hip. However this appears chronic in nature according to the radiologist. This is not a surgical fracture either and therefore there is no need for emergent orthopedic consultation or admission. Patient did not have overlying signs of infection such as cellulitis or abscess or shingles. 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 No acute fracture or dislocation. Electronically Signed: Rajiv Patino DO at 23:55 EDT , Discharge Plan Triage Chief Complaint: Lower Extremity Injury ED Provider: Buddy Pillai Dx/Rx/DC Orders Clinical Impression: Closed avulsion fracture of greater trochanter of right femur, Hypertension, Fibromyalgia, Anxiety Instructions: Understanding Hip Fractures Prescriptions: New oxycodone-acetaminophen [Percocet] 5-325 mg tablet 1 tab PO Q6H PRN (Reason: pain) 3 Days Qty: 12 0RF No Action metoprolol tartrate 100 MG tablet 100 mg PO BID sertraline [Zoloft] 100 MG tablet 100 mg PO DAILY omeprazole 40 MG capsule,delayed release(DR/EC) 40 mg PO DAILY dicyclomine 20 MG tablet 20 mg PO Q6H PRN (Reason: Cramp) lisinopril [Zestril] 40 MG tablet 40 mg PO DAILY diazepam [Valium] 5 MG tablet 5 mg PO TID duloxetine 60 MG capsule,delayed release(DR/EC) 60 mg PO DAILY pregabalin [Lyrica] 200 MG capsule 200 mg PO BID Hydrochlorothiazide 25 MG tablet 25 mg PO DAILY thiamine HCl (vitamin B1) 100 MG tablet 100 mg PO BID Qty: 60 0RF multivitamin,[id number] 1 TABLET tablet 1 tab PO DAILYCM Qty: 30 0RF Primary Care Provider: SUKI KELLY Referrals: SUKI KELLY DO [Primary Care Provider] - Michael Cueva DO [Med Staff - Active Staff] - Activity Restrictions/Additional Instructions: Your CT scan confirmed a right greater trochanter avulsion fracture. This is painful but not typically a surgical fracture. Follow-up with Dr. Cueva or your orthopedic surgeon of choice for further evaluation and return to the ER should you have any further concerns. Print Language: Divehi Disposition Disposition: Home, Self Care Discharge Date/Time: 05/02/24 01:18
[2024-05-01] MEDS: Ondansetron 4 MG/2 ML Vial IV (23:20)
[2024-05-01] MEDS: Morphine 4 MG/ML Syringe IV (23:20)
[2024-05-02] MEDS: HYDROmorphone 0.5 MG/0.5 ML SYRINGE IV (00:32)
[2024-05-02 00:35] VITALS: BP 114/62; PULSE 93; RESP 16; O2SAT 93
[2024-05-02 01:09] VITALS: BP 108/65; PULSE 75; RESP 16; TEMP 36.5; O2SAT 99
== END 2024-05-02 01:18 | disposition home or self-care (01) ==
PROVIDERS: Emergency Provider Emergency Medicine; PCP Family Medicine; Visit Provider Emergency Medicine
DX: S72.111K Displaced fracture of greater trochanter of right femur, subsequent encounter for closed fracture with nonunion (principal); F41.9 Anxiety disorder, unspecified; I10 Essential (primary) hypertension; M79.7 Fibromyalgia; F17.210 Nicotine dependence, cigarettes, uncomplicated; W19.XXXA Unspecified fall, initial encounter
CPT/HCPCS: 73700; 96374; 96375; 99282; J2405